=== PATIENT | female | born 1960 | race Caucasian/White ===

== ENCOUNTER 2017-11-11 13:23 | Emergency (ER) | payer MEDICAID ==
[~2017-11-11] VITALS: Ht 152.4 cm; Wt 63.5 kg
[2017-11-11 13:28] VITALS: Ht 152.4 cm; Wt 63.5 kg
[2017-11-11 14:43] LABS: CALCIUM 10.1 mg/dL (8.5-10.1); CARBON DIOXIDE 21.1 mmol/L (21-32); CHLORIDE SERUM 104 mmol/L (98-107); GFR1 > 60 mL/min; GLUCOSE SERUM 177 mg/dL (74-106); SODIUM SERUM 141 mmol/L (136-145)
[2017-11-11 14:49] LABS: ALBUMIN 4.3 g/dL (3.4-5.0); ALKALINE PHOSPHATASE 124 U/L (46-116); ALT/SGPT 34 U/L (14-59); AST/SGOT 32 U/L (15-37); BILIRUBIN TOTAL 0.4 mg/dL (0.20-1.00); LIPASE 108 IU/L (73-393)
[2017-11-11 14:50] LABS: TOTAL PROTEIN, SERUM 8.7 g/dL (6.4-8.2)
[2017-11-11 15:01] LABS: BASOPHIL % 0.1 % (0-2); PLATELET COUNT 261 x10^3mcL (130-400); RED CELL DISTRIBUTION WIDTH 13.3 % (11.5-14.5)
[2017-11-11 15:22] VITALS: BP 142/82
== END 2017-11-11 15:22 | disposition home or self-care (01) ==
LOC: ED 13:23
PROVIDERS: Emergency Medicine
DX: E87.6 Hypokalemia (principal); R10.84 Generalized abdominal pain; E11.9 Type 2 diabetes mellitus without complications
CPT/HCPCS: J1885; J2405; J7030